=== PATIENT | female | born 2000 | race Caucasian/White ===

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

== ENCOUNTER 2022-08-27 11:04 | Emergency (ER) | payer OTHER, SELFPAY ==
--- NOTE | 2022-08-27 11:07 | ED.ABDPAIN ---
HPI - Abdominal Pain General Chief Complaint: Abdominal Pain Stated Complaint: Abdominal Pain Source: patient and RN notes reviewed History of Present Illness HPI narrative: 22 yo F presents to urgent care with complaints of nausea since Wednesday. Pt states the nausea occurs every time she eats anything. Pt states she can drink any fluids without issue, and it's only food that causes her nausea. Pt states this may have been present before her [employer] on Wednesday but really noticed it after she ate [employer]. Pt states she and her sister both vomited after they ate [employer]. Pt reports a little diarrhea. Pt does admit to having increased anxiety lately. Denies any fevers, chills, abdominal pain, constipation, change of , or back pain. Related Data Allergies Allergy/AdvReac Type Severity Reaction Status Date / Time No Known Allergies Allergy Verified 08/27/22 11:14 Review of Systems Review of Systems: Pertinent positives and pertinent negatives per HPI. [facility] Surgical History Surgical History (Updated 09/29/21 @ 09:25 by Abbe Gagnon MD) H/O wisdom tooth extraction Comments At the time of my signature, I reviewed and agree with the nursing past medical, surgical, social, and family history. There is no relevant family history pertinent to the patient complaint. Exam Narrative: GENERAL: This is a well-nourished, well-developed patient, in no apparent distress. HEAD: normocephalic, atraumatic. EYES: Sclera clear/white. Vision is grossly intact. EARS: External ears normal, auditory canals clear and without drainage. Hearing grossly intact. NOSE: External nose normal with no obvious nasal discharge, nares without redness, no rhinorrhea. THROAT: Mucous membranes moist, posterior pharynx clear. NECK: Neck supple, non-tender without lymphadenopathy, masses or thyromegaly. CARDIOVASCULAR: Regular rate and rhythm without murmurs, gallops, or rubs. RESPIRATORY: Clear to auscultation. Breath sounds equal bilaterally. No wheezes, rales, or rhonchi. GASTROINTESTINAL: Abdomen soft, non-tender, nondistended. Bowel sounds are active. No hepato-splenomegaly, or palpable masses. No guarding. SKIN: warm, intact with no suspicious lesions or rash, good texture and turgor. NEURO: awake, alert, and oriented to person, place and time. There were no obvious focal neurologic abnormalities. Course Course Level of Care: Express Care Visit Vital Signs Vital signs: Vital Signs Temperature 98 F 08/27/22 11:14 Pulse Rate 74 08/27/22 11:14 Respiratory Rate 20 08/27/22 11:14 Blood Pressure 114/81 08/27/22 11:14 Pulse Oximetry 99 08/27/22 11:14 Temperature 98 F 08/27/22 11:14 Pulse Rate 74 08/27/22 11:14 Respiratory Rate 20 08/27/22 11:14 Blood Pressure 114/81 08/27/22 11:14 Pulse Oximetry 99 08/27/22 11:14 reviewed MDM - Abdominal Pain MDM Narrative Medical decision making narrative: Take the Zofran as directed as needed. Get plenty of fluids. Contact your industrial conveyor belt repairer if this continues over the weekend to have blood work and possibly a stool culture obtained. Attempt to manage anxiety with getting daily exercise, daily sunshine, and improving gut health. Differential Diagnosis Differential diagnosis: Likely gastroenteritis and other (food poisoning, anxiety) Critical Care Time Critical Care Time Critical Care Time: No Discharge Plan Discharge Clinical Impression: Nausea Patient Disposition: Home, Self-Care Condition: Stable Instructions: Acute Nausea and Vomiting (DC) Additional Instructions: Take the Zofran as directed as needed. Get plenty of fluids. Contact your industrial conveyor belt repairer if this continues over the weekend to have blood work and possibly a stool culture obtained. Attempt to manage anxiety with getting daily exercise, daily sunshine, and improving gut health. Prescriptions: New ondansetron 4 mg tablet,disintegrating 4
[2022-08-27 11:14] VITALS: BP 114/81; PULSE 74; RESP 20; TEMP 36.6; O2SAT 99
== END 2022-08-27 11:26 | disposition home or self-care (01) ==
PROVIDERS: Emergency Provider Nurse Practitioner Family; PCP Pediatrics
DX: R11.0 Nausea (principal)
CPT/HCPCS: 99213; G0463